=== PATIENT | male | born 1955 | race Caucasian/White ===

== ENCOUNTER 2023-02-11 12:45 | Emergency (ER) | payer OTHER ==
[~2023-02-11] VITALS: Ht 180.3 cm; Wt 148.3 kg
[2023-02-11 13:53] LABS: RSV AMPLIFICATION NEGATIVE (NEGATIVE)
[2023-02-11] MEDS ORDERED: DOXY100C82 PO (15:34)
[2023-02-11] MEDS ORDERED: PRED20TA PO (15:34)
[2023-02-11 15:54] VITALS: BP 134/77; TEMP 98.6; O2SAT 97
== END 2023-02-11 15:56 | disposition home or self-care (01) ==
LOC: M ED 12:45
DX: J20.9 Acute bronchitis, unspecified (principal); E11.9 Type 2 diabetes mellitus without complications; I10 Essential (primary) hypertension; E78.5 Hyperlipidemia, unspecified; Z87.891 Personal history of nicotine dependence; J44.0 Chronic obstructive pulmonary disease with (acute) lower respiratory infection